=== PATIENT | female | born 2000 | race Caucasian/White ===

== ENCOUNTER 2020-03-27 15:59 | Emergency (ER) | payer SELFPAY ==
[2020-03-27 16:12] VITALS: BP 129/84; PULSE 109; RESP 16; TEMP 37.5; O2SAT 100; BMI 34.4
--- NOTE | 2020-03-27 16:49 | XRR_ITS ---
PROCEDURE INFORMATION: Exam: XR Chest, 1 View Exam date and time: 03/27/2020 5:46 PM Age: 19 years old Clinical indication: Cough and dyspnea and fever; Additional info: Dyspnea/cough, n/v, GUTIERRES TECHNIQUE: Imaging protocol: XR of the chest Views: 1 view. COMPARISON: CR Chest 1 [place] [id number] 10/11/2016 9:32 AM FINDINGS: Lungs: No lung consolidation or pulmonary edema. Pleural space: No pleural effusion or pneumothorax. Heart/Mediastinum: The cardiac silhouette is not enlarged. The mediastinal contours are normal. Bones/joints: No acute osseous abnormality. XR/XR chest 1V portable [id number] IMPRESSION: Normal.
[2020-03-27 17:05] LABS: Basophils # 0.1 10^3/uL (0.0-0.1); Basophils % 0.3 %; Eosinophils # 0.1 10^3/uL (0.0-0.8); Eosinophils % 0.3 %; Hematocrit 47.7 % (37.0-47.0); Hemoglobin 15.4 g/dL (11.5-15.3); Lymphocytes % 4.9 %; Mean Corpuscular HGB Conc 32.3 g/dL (30.0-36.0); Mean Corpuscular Hemoglobin 28.9 pg (28.0-34.0); Mean Corpuscular Volume 89.5 fL (81-99); Mean Platelet Volume 9.9 fL (7.4-10.4); Monocytes # 1.8 10^3/uL (0.2-0.9); Monocytes % 8.9 %; Neutrophils # 16.83 10^3/uL (1.8-7.7); Neutrophils % 85.1 %; Nucleated Red Blood Cells % 0 %; Platelet Count 256 10^3/cmm (130-400); Red Blood Count 5.33 10^6/uL (4.1-5.3); Red Cell Distribution Width 12.4 % (12.1-15.1); White Blood Count 19.8 10^3/uL (4.0-10.0)
--- NOTE | 2020-03-27 17:48 | CTR_ITS ---
PROCEDURE INFORMATION: Exam: CT Abdomen And Pelvis With Contrast Exam date and time: 03/27/2020 6:28 PM Age: 19 years old Clinical indication: Abdominal pain; Generalized TECHNIQUE: Imaging protocol: Computed tomography of the abdomen and pelvis with intravenous contrast. Radiation optimization: All CT scans at this facility use at least one of these dose optimization techniques: automated exposure control; mA and/or kV adjustment per patient size (includes targeted exams where dose is matched to clinical indication); or iterative reconstruction. Contrast material: OMNI 300; Contrast volume: 95 ml; Contrast route: INTRAVENOUS (IV); COMPARISON: CT abdomen pelvis w con* [id number] 09/01/2017 3:11 AM RADIATION DOSE METRICS: Total DLP (mGy-cm): 1196.42 FINDINGS: Liver: Normal. No mass. Gallbladder and bile ducts: Normal. No calcified stones. No ductal dilation. Pancreas: Normal. No ductal dilation. Spleen: Normal. No splenomegaly. Adrenals: Normal. No mass. Kidneys and ureters: Small patchy areas of decreased cortical enhancement are observed in both kidneys. No renal stone or hydronephrosis. Mild bilateral perinephric fat stranding is appreciated adjacent to the areas of decreased cortical enhancement. Stomach and bowel: Unremarkable. No obstruction. No mucosal thickening. Appendix: The appendix is normal. Intraperitoneal space: Unremarkable. No free air. No significant fluid collection. Vasculature: Unremarkable. No abdominal aortic aneurysm. Lymph nodes: Unremarkable. No enlarged lymph nodes. Bladder: Unremarkable as visualized. Reproductive: The uterus and ovaries appear normal. Bones/joints: Unremarkable. No acute fracture. Soft tissues: Unremarkable. CT/CT abdomen pelvis w con* [id number] IMPRESSION: Suspected mild bilateral pyelonephritis, correlate with analysis. Radiation Dose CTDIVOL = (mGy): DLP = 1196.42 (mGy-cm)
[2020-03-27 18:04] LABS: Alanine Aminotransferase 11 U/L (0-33); Albumin Level 4.7 g/dL (3.5-5.2); Alkaline Phosphatase 102 IU/L (35-105); Aspartate Amino Transferase 17 U/L (0-32); Blood Urea Nitrogen 8 mg/dL (6-20); Calcium 9.9 mg/dL (8.5-10.5); Carbon Dioxide 23 mmol/L (22-29); Chloride 99 mmol/L (98-107); Globulin 4.1 g/dL (1.3-4.6); Glucose 107 mg/dL (65-115); Lipase 10 U/L (13-60); Osmolality Calculated 280 mOsm/kg (285-295); Sodium 137 mmol/L (136-145); Total Bilirubin 1.2 mg/dL (0.15-1.2); Total Protein 8.8 g/dL (6.6-8.7)
--- NOTE | 2020-03-27 18:15 | W.ED.NAVMDI ---
HPI - Nausea/Vomiting/Diarrhea General: Chief complaint: Nausea/Vomiting/Diarrhea Stated complaint: headache/nausea/vomiting/fever Time Seen by Provider: 03/27/20 16:48 Source: patient Mode of arrival: ambulatory Limitations: no limitations History of Present Illness: HPI Narrative: 19-year-old female states she had a headache that began yesterday along with vomiting. Patient states she her headache began gradually was initially a 2 or 3 out of 10 is now a 7 out of 10. She denies any fevers. She states she thrown up multiple times. She denies any worsening improving factors. She denies this being the worst headache of her life. She states she is also had abdominal cramping. Her last period was 3 weeks ago. Associated nausea: Yes Associated symtoms: Reports headache(s) and nausea; Denies chest pain or dysuria Review of Systems Const: Denies: fever(s), chills, body aches or change in appetite Eyes: Denies: blurry vision or eye discomfort ENMT: Denies: throat pain or dental pain Card: Denies: chest pain Resp: Denies: dyspnea GI: Reports: abdominal pain, nausea and vomiting : Denies: dysuria Musc: Denies: neck pain or back pain Skin/Breast: Denies: rash Neuro: Reports: headache(s) Psych: Denies: depression Rigoberto/Lymph: Denies: easy bruising All/Imm: Denies: urticaria Physical Exam Const: COMMON NORMALS: no acute distress, patient oriented x3 and healthy appearing HENMT: COMMON NORMALS: normocephalic and atraumatic HEAD & SCALP: normocephalic and atraumatic Eye: COMMON NORMALS: Equal, round and reactive pupils present and EOMs intact bilaterally PUPIL: Yes Equal, round and reactive pupils present Neck/C-Spine: COMMON NORMALS: full ROM and supple Chest: COMMONS NORMALS: normal inspection of the chest and normal palpation of entire chest wall Resp: COMMON NORMALS: normal respiratory effort, No retractions, No use of accessory muscles and clear to auscultation bilaterally AUSCULTATION: clear to auscultation bilaterally Cardio: COMMON NORMALS: regular rate, regular rhythm and No murmurs present (Cardio) RATE: regular rate RHYTHM: regular rhythm GI: COMMON NORMALS: Normal to inspection, nondistended, normoactive bowel sounds present, Soft to palpation, non-tender and no masses PALPATION: Yes Soft to palpation Extremity: COMMON NORMALS: normal to inspection and full ROM Neuro: COMMON NORMALS: patient oriented x3, moves all extremities and no focal motor deficits Psych: COMMON NORMALS: mental status grossly normal, Normal thought process present and cooperative THOUGHT PROCESS: Normal thought process present Skin: COMMON NORMALS: no rashes or lesions noted and no wounds GENERAL SKIN EXAM: no rashes or lesions noted Course Vital Signs: Vital signs: Vital Signs Temperature 99.5 F 03/27/20 16:12 Pulse Rate 104 H 03/27/20 20:30 Respiratory Rate 20 H 03/27/20 20:30 Blood Pressure 138/88 03/27/20 20:30 Pulse Oximetry 99 03/27/20 20:30 MDM - Nausea/Vomiting/Diarrhea MDM Narrative: Medical decision making narrative: Patient presents here with nausea vomiting and is found to have a pyelonephritis. Patient feels much improved here and has been able to tolerate p.o. I did offer admission since she had such severe vomiting before. She states she feels improved and would like to try oral antibiotics first. We will place her on Cipro along with Reglan and [place]. She is to follow-up with her PCP and return to ER if worsening. She understands and agrees to the plan. Lab Data: Labs: Lab Results 03/27/20 03/27/20 03/27/20 Range/Units 16:58 16:58 16:58 WBC 19.8 H (4.0-10.0) 10^3/ uL RBC 5.33 H (4.1-5.3) 10^6/u L Hgb 15.4 H (11.5-15.3) g/dL Hct 47.7 H (37.0-47.0) % MCV 89.5 (81-99) fL MCH 28.9 (28.0-34.0) pg MCHC 32.3 (30.0-36.0) g/dL RDW 12.4 (12.1-15.1) % Plt Count 256 (130-400) 10^3/c mm MPV 9.9 (7.4-10.4) fL Neut % (Auto) 85.1 % Lymph % (Auto) 4.9 % [place] % (Auto) 8.9 % Eos % (Auto) 0.3 % Baso % (Auto) 0.3 % Neut # (Auto) 16.83 H (1.8-7.7) 10^3/u L Lymph # (Auto) 1.0 (0.8-4.8) 10^3/u L [place] # (Auto) 1.8 H (0.2-0.9) 10^3/u L Eos # (Auto) 0.1 (0.0-0.8) 10^3/u L Baso # (Auto) 0.1 (0.0-0.1) 10^3/u L Nucleated RBC % (a uto) 0 % Nucleated RBCs # 0.0 /100WBC Sodium 137 (136-145) mmol/L Potassium 4.0 (3.5-5.1) mmol/L Chloride 99 (98-107) mmol/L Carbon Dioxide 23 (22-29) mmol/L Anion Gap 19.0 (5-19) BUN 8 (6-20) mg/dL Creatinine 0.9 (0.5-0.9) mg/dL GFR Calculation 79.0 L (90-130) mL/min Glucose 107 (65-115) mg/dL Calculated Osmolal ity 280 L (285-295) mOsm/k g Calcium 9.9 (8.5-10.5) mg/dL Total Bilirubin 1.2 (0.15-1.2) mg/dL AST 17 (0-32) U/L ALT 11 (0-33) U/L Alkaline Phosphata se 102 (35-105) IU/L Total Protein 8.8 H (6.6-8.7) g/dL Albumin 4.7 (3.5-5.2) g/dL Globulin 4.1 (1.3-4.6) g/dL Lipase 10 L (13-60) U/L HCG, Qual Negative (Negative) Urine Color (Yellow) Urine Appearance (CLEAR) Urine pH (5-7) Ur Specific Gravit y (1.005-1.030) Urine Protein (Negative) Urine Glucose (UA) (Normal) Urine Ketones (Negative) Urine Blood (Negative) Urine Nitrate (Negative) Urine Bilirubin (NEGATIVE) Prot Sulfosalicyli c Acd (Negative) Urine Urobilinogen (Negative) mg/dL Ur Leukocyte Annamarie ase (Negative) Urine RBC (0-2) /hpf Urine WBC (0-5) /hpf Ur Squamous Epith Cells (0-5) Amorphous Sediment Urine Bacteria (NONE) 03/27/20 Range/Units 18:48 WBC (4.0-10.0) 10^3/ uL RBC (4.1-5.3) 10^6/u L Hgb (11.5-15.3) g/dL Hct (37.0-47.0) % MCV (81-99) fL MCH (28.0-34.0) pg MCHC (30.0-36.0) g/dL RDW (12.1-15.1) % Plt Count (130-400) 10^3/c mm MPV (7.4-10.4) fL Neut % (Auto) % Lymph % (Auto) % [place] % (Auto) % Eos % (Auto) % Baso % (Auto) % Neut # (Auto) (1.8-7.7) 10^3/u L Lymph # (Auto) (0.8-4.8) 10^3/u L [place] # (Auto) (0.2-0.9) 10^3/u L Eos # (Auto) (0.0-0.8) 10^3/u L Baso # (Auto) (0.0-0.1) 10^3/u L Nucleated RBC % (a uto) % Nucleated RBCs # /100WBC Sodium (136-145) mmol/L Potassium (3.5-5.1) mmol/L Chloride (98-107) mmol/L Carbon Dioxide (22-29) mmol/L Anion Gap (5-19) BUN (6-20) mg/dL Creatinine (0.5-0.9) mg/dL GFR Calculation (90-130) mL/min Glucose (65-115) mg/dL Calculated Osmolal ity (285-295) mOsm/k g Calcium (8.5-10.5) mg/dL Total Bilirubin (0.15-1.2) mg/dL AST (0-32) U/L ALT (0-33) U/L Alkaline Phosphata se (35-105) IU/L Total Protein (6.6-8.7) g/dL Albumin (3.5-5.2) g/dL Globulin (1.3-4.6) g/dL Lipase (13-60) U/L HCG, Qual (Negative) Urine Color Yellow (Yellow) Urine Appearance Sl cloudy A (CLEAR) Urine pH 9 H (5-7) Ur Specific Gravit y 1.015 (1.005-1.030) Urine Protein Neg (Negative) Urine Glucose (UA) Norm (Normal) Urine Ketones 1+ H (Negative) Urine Blood 3+ H (Negative) Urine Nitrate Positive H (Negative) Urine Bilirubin Neg (NEGATIVE) Prot Sulfosalicyli c Acd Positive (Negative) Urine Urobilinogen 1 H (Negative) mg/dL Ur Leukocyte Annamarie ase 2+ H (Negative) Urine RBC 25-40 H (0-2) /hpf Urine WBC 55-80 H (0-5) /hpf Ur Squamous Epith Cells 5-10 H (0-5) Amorphous Sediment Not Reportable Urine Bacteria 3+ H (NONE) Imaging Data^: CT Abd/Pel: Radiologist's impression: [place] [address] CT Scan Report Signed Patient: Anirudh Solo Unit #: [id number] : 2000 Age/Sex: 19 / F ADM Date: 03/27/20 Loc: ER Room/Bed: Attending Dr: Ordering Provider/Ordering MD: Lisa Jaimes DO Date of Service: 03/27/20 Procedure(s): CT abdomen pelvis w con* [id number] Accession Number(s): [id number] Report Number: [id number] PROCEDURE INFORMATION: Exam: CT Abdomen And Pelvis With Contrast Exam date and time: 03/27/2020 6:28 PM Age: 19 years old Clinical indication: Abdominal pain; Generalized TECHNIQUE: Imaging protocol: Computed tomography of the abdomen and pelvis with intravenous contrast. Radiation optimization: All CT scans at this facility use at least one of these dose optimization techniques: automated exposure control; mA and/or kV adjustment per patient size (includes targeted exams where dose is matched to clinical indication); or iterative reconstruction. Contrast material: OMNI 300; Contrast volume: 95 ml; Contrast route: INTRAVENOUS (IV); COMPARISON: CT abdomen pelvis w con* [id number] 09/01/2017 3:11 AM RADIATION DOSE METRICS: Total DLP (mGy-cm): 1196.42 FINDINGS: Liver: Normal. No mass. Gallbladder and bile ducts: Normal. No calcified stones. No ductal dilation. Pancreas: Normal. No ductal dilation. Spleen: Normal. No splenomegaly. Adrenals: Normal. No mass. Kidneys and ureters: Small patchy areas of decreased cortical enhancement are observed in both kidneys. No renal stone or hydronephrosis. Mild bilateral perinephric fat stranding is appreciated adjacent to the areas of decreased cortical enhancement. Stomach and bowel: Unremarkable. No obstruction. No mucosal thickening. Appendix: The appendix is normal. Intraperitoneal space: Unremarkable. No free air. No significant fluid collection. Vasculature: Unremarkable. No abdominal aortic aneurysm. Lymph nodes: Unremarkable. No enlarged lymph nodes. Bladder: Unremarkable as visualized. Reproductive: The uterus and ovaries appear normal. Bones/joints: Unremarkable. No acute fracture. Soft tissues: Unremarkable. CT/CT abdomen pelvis w con* [id number] IMPRESSION: Suspected mild bilateral pyelonephritis, correlate with analysis. CT Head: Radiologist's impression: [place] [address] CT Scan Report Signed Patient: Anirudh Solo Unit #: [id number] : 2000 Age/Sex: 19 / F ADM Date: 03/27/20 Loc: ER Room/Bed: Attending Dr: Ordering Provider/Ordering MD: Quinten Rose MD Date of Service: 03/27/20 Procedure(s): CT head wo con* [id number] Accession Number(s): [id number] Report Number: [id number] PROCEDURE INFORMATION: Exam: CT Head Without Contrast Exam date and time: 03/27/2020 6:18 PM Age: 19 years old Clinical indication: Pain; Headache; Additional info: GUTIERRES TECHNIQUE: Imaging protocol: Computed tomography of the head without contrast. Radiation optimization: All CT scans at this facility use at least one of these dose optimization techniques: automated exposure control; mA and/or kV adjustment per patient size (includes targeted exams where dose is matched to clinical indication); or iterative reconstruction. COMPARISON: No relevant prior studies available. RADIATION DOSE METRICS: Total DLP (mGy-cm): 769.13 FINDINGS: Brain: Normal. No hemorrhage. Unremarkable white matter. No mass effect. Ventricles: Normal. No ventriculomegaly. Bones/joints: Unremarkable. No acute fracture. Sinuses: Visualized sinuses are unremarkable. No fluid levels. Mastoid air cells: Visualized mastoid air cells are well aerated. Soft tissues: Unremarkable. CT/CT head wo con* [id number] IMPRESSION: No acute intracranial abnormality. Radiation Dose CTDIVOL = (mGy): DLP = 769.13 (mGy-cm) Discharge Plan Discharge Patient Disposition: Home Clinical Impression: Pyelonephritis Condition: Stable Prescriptions: [place] 5-325 mg tablet 1 tab PO Q6H PRN (Reason: pain) Qty: 14 RF: 0 Reglan 10 mg tablet 10 mg PO Q6H PRN (Reason: nausea and vomiting) Qty: 20 RF: 0 Cipro 500 mg tablet 500 mg PO BID Qty: 7 RF: 0 No Action Tylenol 325 mg Tablet 325 - 650 mg PO Q4H PRN (Reason: Pain) RF: 0 promethazine 25 mg Tablet 25 mg PO Q6H PRN (Reason: n/v) RF: 0 Motrin IB 200 mg Tablet 200 mg PO Q6H PRN (Reason: Pain) RF: 0 Discharge Orders: Discharge Order (Routine); Ordered 03/27/20 Ordered By: Quinten Rose Discharge Diet: Advance as tolerated Discharge Activity: Resume usual activity Patient Instructions: Acute Pyelonephritis (ED) Discharge Date/Time: 03/27/20 20:38 Coding Level of Care Code ED [employer] for Chg Fwd Exam Comprehensive
[2020-03-27] MEDS: metoclopramide 5 mg/mL SDV 2 mL 10 MG IV (18:27)
[2020-03-27] MEDS: diphenhydrAMINE 50 mg/mL SDV 1mL 25 MG IVP (18:27)
[2020-03-27 18:31] VITALS: BP 114/97; PULSE 110; RESP 22; O2SAT 100
[2020-03-27 18:45] LABS: HCG, Serum Qual Negative (Negative)
[2020-03-27] MEDS: sodium chloride 0.9% 1,000 ML 999 ML IV ×2 (18:47→19:49)
[2020-03-27] MEDS: iohexol 300 mg/mL 100 mL Btl IV (19:07)
[2020-03-27 19:30] VITALS: BP 145/80; PULSE 101; RESP 18; O2SAT 93
[2020-03-27] MEDS: cefTRIAXone 1,000 MG in sodium chloride 0.9% (plus) 50 ML 100 MG IV (19:49)
[2020-03-27 20:10] LABS: Bilirubin Urine Neg (NEGATIVE); Blood Urine 3+ (Negative); Glucose Urine UA Norm (Normal); Ketones Urine 1+ (Negative); Nitrate Urine Positive (Negative); Protein Urine Neg (Negative); Specific Gravity, Urine 1.015 (1.005-1.030); Urine Color Yellow (Yellow); pH Urine 9 (5-7)
[2020-03-27 20:11] LABS: Add Urine Culture? Yes; Add Urine Microscopic? YES; Bacteria Urine 3+; Leukocyte Esterase Urine 2+ (Negative); RBC Urine 25-40 /hpf (0-2); Sulfosalicylic Acid Urine Positive (Negative); Urobilinogen Urine 1 mg/dL (Negative); WBC Urine 55-80 /hpf (0-5)
[2020-03-27 20:30] VITALS: BP 138/88; PULSE 104; RESP 20; O2SAT 99
== END 2020-03-27 20:38 | disposition home or self-care (01) ==
PROVIDERS: Family Medicine; Emergency Provider Emergency Medicine
DX: N12 Tubulo-interstitial nephritis, not specified as acute or chronic (principal)
CPT/HCPCS: 12345; 36415; 70450; 71045; 74177; 80053; 81001; 83690; 84703; 85025; 87077; 87086; 87186; 96361; 96365; 96375; 99283; 99284; J0696; J1200; J2765; J7030; Q9967